=== PATIENT | male | born 1970 | race African-American/Black ===

== ENCOUNTER 2024-12-14 23:04 | Emergency (ER) | payer OTHER ==
--- OUTSIDE RECORDS SUMMARY | 2024-12-14 23:06 | XMS REPORT | Clinical Summary ---
Author Name Unknown Organization [facility] Address [address] [place] [address] [address] Team Prov[address] Care Road Maker Name Role Phone Romel Petit MD Primary Care Provider [phone] Garrison Landis MD Unavailable [phone] Isiah Flores MD Unavailable [phone] Sukh Torres MD Unavailable [phone] Uche Stern MD Unavailable [phone] Jesu Mcdonnell MD Unavailable Allergies No known active allergies Medications amLODIPine (NORVASC) 10 mg tabletIndicatio ns:hypertension Take 10 mg by mouth daily. Hx CHF 8 Active isosorbide mononitrate (IMDUR) 30 mg 24 hr tablet Take 30 mg by mouth daily. CHF Active lisinopril (PRINIVIL,ZESTR IL) 20 mg tablet Take 20 mg by mouth twice daily. Active pantoprazole (PROTONIX) 40 mg granules for suspensionIndic ations:gastroes ophageal reflux disease Take 40 mg by mouth daily. Active furosemide (LASIX) 40 mg tabletIndicatio ns:peripheral edema due to chronic heart failure Take 40 mg by mouth twice daily. Active digoxin (DIGOX) 125 mcg tabletIndicatio ns:chronic heart failure Take 125 mcg by mouth daily. Active carvedilol (COREG) 25 mg tabletIndicatio ns:chronic heart failure Take 25 mg by mouth twice daily. Active albuterol (VENTOLIN HFA,PROAIR HFA) 90 mcg/puff inhaler Inhale 2 puffs by mouth as needed. Active predniSONE (DELTASONE) 20 mg tabletIndicatio ns:Sarcoidosis TAKE 2 TABLETS EVERY DAY 60 tablet 6 Active Additional Information Patient taking differently: taking 1 tablet daily, tapping dose, Reason: Other, Informant: Self, Reported on 08/11/2016 albuterol (PROVENTIL,VENT MICHAEL) 2.5 mg /3 mL (0.083%) nebulizer solutionIndicat ions:Wheezing Take 1 vial by nebulization every 6 (six) hours as needed for wheezing or shortness of breath. 170 mL 11 6 Active Active Problems Problem Noted Date Diagnosed Date Other nonspecific abnormal finding of lung field Immunizations Name Administration Dates Next Due Influenza, split virus, trivalent, preservative free 05/11/2016 Pneumococcal Conjugate 13-Valent 05/11/2016 Medical History Medical History Date Comments Hypertension 09/30/07 high blood press ure Other heart disorder in dise ases classified elsewhere 09/30/07 congestive heart failure Chronic bronchitis 03/25/16 acute bronchi tis Pneumonia 03/25/16 CT shows left catie ng masses Fracture 05/07/85 broken leg Congestive heart failure 2007 viral m yocarditis Family History Medical History Relation Name Comments -Gastrointestinal (Esophagus , Liver, Bile Duct, Stomach, Pancreas, Colon, Rectum, Anus Maternal Aunt jorge whitlock colon canc er COPD Mother teresita greene Hypertension Mother teresita greene high blood pre ssure Lung cancer Mother teresita hel Stroke Mother teresita hel stroke Relation Name Status Comments Brother car accident Father Maternal Aunt jorge whitlock Mother teresita greene Social History Tobacco Use Types Packs/Day Years Used Date Smoking Tobacco: Former Cigarettes 0.3 5.3 0 02/28/2009 - 06/28/2014 Smokeless Tobacco: Never Comments:was a light smoker , but quit over a year ago.. 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 Not on file Not on file Not on file Obstetrics History Plan of Treatment Health Maintenance Due Date Last Done Comments Pneumococcal Vaccine: 50+ Years (2 of 2 - PPSV23) 08/2305/11/2016 COVID-19 Vaccine (2023- season) 2024 Influenza Vaccine (#1) 2024 05/11/2016 Insurance MEDICARE PART A AND B MEDICARE PART A AND B MEDICARE PART A AND B Care Teams Road Maker Relationship Specialty Start Date End Date Romel Petit MD [email or web address] PCP - General Internal Medicine 03/27/16 Garrison Landis MD PCP - External Primary Care Provider Family Practice 03/26/16 Isiah Flores MD [address] [place] [id number] [email or web address] PCP - External Follow Up A Cardiology 03/26/16 Sukh Torres MD [address] [place] [id number] [email or web address] PCP - External Follow Up B Pulmonary Medicine 03/26/16 Uche Stern MD [address] [place] [email or web address] Consulting Physician Pulmonary Medicine 04/20/16 Jesu Mcdonnell MD [address] [place] [address] [email or web address] Consulting Physician Rheumatology 05/11/16
--- NOTE | 2024-12-14 23:26 | EDPHYS ---
Physician Documentation [facility] Name: Keny Greene Age: 54 yrs Sex: Male : 1970 Arrival Date: 12/14/2024 Time: 23:04 Bed IW1 Private MD: ED Physician Ramin Maldonado HPI: 12/14 23:35 This 54 yrs old Black Male presents to ER via Ambulatory with complaints of Cat Bite. sb4 23:35 The patient was bitten on the dorsum of left hand, by a cat, while approaching the sb4 animal, outdoors. Onset: The symptoms/episode began/occurred just prior to arrival. Animal information: Patient/Caregiver unable to provide information related to the animal. feral cat. Secondary to the bite the patient reports multiple puncture wounds, that are superficial. Historical: - Allergies: 23:14 No Known Allergies; ha1 - PMHx: 23:14 Chronic obstructive lung disease; SARCOIDOSIS; ha1 - Immunization history:: Adult Immunizations up to date. - Infectious Disease History:: Denies. - Social history:: Smoking status: Patient denies any tobacco usage or history of. ROS: 23:35 Constitutional: Negative for fever, chills, and weight loss, sb4 23:35 Skin: Positive for abrasion(s), puncture, of the left hand, abrasion right wrist, puncture wounds left hand, 23:35 All other systems are negative, Exam: 23:35 Constitutional: This is a well developed, well nourished patient who is awake, alert, sb4 and in no acute distress. Head/Face: Normocephalic, atraumatic. Eyes: Extra-ocular motions intact. Periorbital areas with no swelling, redness, or edema. ENT: Mucous membranes moist. Respiratory: No increased work of breathing, no retractions or nasal flaring. 23:35 Skin: injury, abrasion(s), small abrasion noted, of the right wrist, puncture(s), that are superficial, of the dorsum of left hand, Vital Signs: 23:14 BP 103 / 61; Pulse 76; Resp 17 S; Temp 98.4(O); Pulse Ox 99% on R/A; Weight 97.52 kg; ha1 Height 5 ft. 10 in. ; 23:14 Body Mass Index 30.85 (97.52 kg, 177.8 cm) ha1 MDM: 23:08 Medical Screening Exam initiated sb4 23:35 Rabies Status: Rabies immunization is not indicated. Data reviewed: vital signs, nurses sb4 notes, and as a result, I will discharge patient. Counseling: I had a detailed discussion with the patient and/or guardian regarding the historical points, exam findings, and any diagnostic results supporting the discharge/admit diagnosis, the need for outpatient follow up, for definitive care, to return to the emergency department if symptoms worsen or persist or if there are any questions or concerns that arise at home. 12/14 23:25 Order name: Wound dressing; Complete Time: 23:39 sb4 Administered Medications: 23:29 Drug: Amoxicillin-Clavulanate PO 875 mg PO once Route: PO; ha1 23:42 Follow up: Response: No adverse reaction ha1 23:29 Drug: Ibuprofen PO 800 mg PO once Route: PO; ha1 23:42 Follow up: Response: No adverse reaction; Pain is decreased ha1 Disposition: 12/15 02:04 Co-signature as Attending Physician, Ramin Maldonado MD I reviewed the patient's care rn provided by the Advanced Practice Provider and agree with the diagnosis and treatment plan. Disposition Summary: 12/14/24 23:26 Discharge Ordered Notes: Location: Home sb4 Problem: new sb4 Symptoms: are unchanged sb4 Condition: Stable sb4 Diagnosis - Bitten by cat sb4 Followup: sb4 - With: Emergency Department - When: As needed - Reason: Fever > 102 F, Worsening of condition Discharge Instructions: - Discharge Summary Sheet sb4 - Animal Bite, Adult, [id number] sb4 - Puncture Wound, [id number] sb4 - Wound Care, Adult sb4 Forms: - Antibiotic Education sb4 - Patient Portal Instructions sb4 - Leadership Thank You Letter sb4 Prescriptions: - Augmentin 875-125 mg Oral Tablet - take 1 tablet ORAL route every 12 hours for 10 days; 20 tablet; Refills: 0, sb4 Product Selection Permitted Signatures: Ramin Maldonado MD MD rn Ayala, Heidy, RN RN ha1 Skye Enciso PA-C PA-C sb4
--- NOTE | 2024-12-14 23:26 | ER ---
Nurse's Notes [facility] Name: Keny Greene Age: 54 yrs Sex: Male : 1970 Arrival Date: 12/14/2024 Time: 23:04 Bed IW1 Private MD: Diagnosis: Bitten by cat Presentation: 12/14 23:14 Chief complaint: Patient states: CAT BITE ON THE LEFT HAND AND SCRATCHED ON THE RIGHT ha1 WRIST. IT HAPPENED ONE HOUR AGO. Coronavirus screen: Client denies travel out of the [place] in the last 14 days. Ebola Screen: No symptoms or risks identified at this time. Initial Sepsis Screen: Does the patient meet any 2 criteria? No. Patient's initial sepsis screen is negative. Does the patient have a suspected source of infection? No. Patient's initial sepsis screen is negative. Risk Assessment: Do you want to hurt yourself or someone else? Patient reports no desire to harm self or others. Onset of symptoms was December 14, 2024. 23:14 Method Of Arrival: Ambulatory 1 23:14 Acuity: DESIREE 4 ha1 Triage Assessment: 23:14 Bite description: bite sustained to left hand by a cat, animal information: ha1 vaccination(s) is unknown. General: Appears comfortable, Behavior is calm, cooperative. Pain: Complains of pain in left hand. Neuro: Level of Consciousness is awake, alert, obeys commands, Oriented to person, place, time, situation. Cardiovascular: Capillary refill < 3 seconds Patient's skin is warm and dry. Respiratory: Airway is patent Respiratory effort is even, unlabored, Respiratory pattern is regular, symmetrical. Historical: - Allergies: 23:14 No Known Allergies; ha1 - PMHx: 23:14 Chronic obstructive lung disease; SARCOIDOSIS; ha1 - Immunization history:: Adult Immunizations up to date. - Infectious Disease History:: Denies. - Social history:: Smoking status: Patient denies any tobacco usage or history of. Screenin:39 [facility] ED Fall Risk Assessment (Adult) History of falling in the last 3 months, ha1 including since admission No falls in past 3 months (0 pts) Confusion or Disorientation No (0 pts) Intoxicated or Sedated No (0 pts) Impaired Gait No (0 pts) Mobility Assist Device Used No (0 pt) Altered Elimination No (0 pt) Score/Fall Risk Level 0 - 2 = Low Risk Oriented to surroundings, Maintained a safe environment, Educated pt \T\ family on fall prevention, incl call for assistance when getting out of bed, Hourly rounding (assess needs \T\ fall precautionary measures) done. Abuse screen: Denies threats or abuse. Denies injuries from another. Nutritional screening: No deficits noted. Tuberculosis screening: No symptoms or risk factors identified. Assessment: 23:14 General: Appears comfortable, Behavior is calm, cooperative. Pain: Complains of pain in ha1 left hand. Respiratory: Airway is patent Respiratory effort is even, unlabored, Respiratory pattern is regular, symmetrical. Derm: Skin is healthy with good turgor, Skin is normal. 23:59 Reassessment: NOTIFIED [facility] DEPARTMENT OF EVENT CASE #[id number]. ha1 Vital Signs: 23:14 BP 103 / 61; Pulse 76; Resp 17 S; Temp 98.4(O); Pulse Ox 99% on R/A; Weight 97.52 kg; ha1 Height 5 ft. 10 in. ; 23:14 Body Mass Index 30.85 (97.52 kg, 177.8 cm) ha1 ED Course: 23:06 Patient arrived in ED. [id number] 23:07 Skye Enciso PA-C is PHCP. sb4 23:07 Ramin Maldonado MD is Attending Physician. sb4 23:14 Arm band placed on left wrist. ha1 23:14 Patient has correct armband on for positive identification. Side rails up X 1. ha1 23:14 Provided Education on: wound care . ha1 23:18 Triage completed. ha1 23:40 No provider procedures requiring assistance completed. Patient did not have IV access ha1 during this emergency room visit. Administered Medications: 23:29 Drug: Amoxicillin-Clavulanate PO 875 mg PO once Route: PO; ha1 23:42 Follow up: Response: No adverse reaction ha1 23:29 Drug: Ibuprofen PO 800 mg PO once Route: PO; ha1 23:42 Follow up: Response: No adverse reaction; Pain is decreased ha1 Medication: 23:40 VIS not applicable for this client. ha1 Outcome: 23:26 Discharge ordered by . sb4 23:40 Discharged to home ambulatory, with family, ha1 23:40 Condition: stable 23:40 Discharge instructions given to patient, Instructed on discharge instructions, follow up and referral plans. medication usage, Demonstrated understanding of instructions, follow-up care, medications, Prescriptions given X 1, 23:42 Patient left the ED. ha1 Signatures: Mary Erickson Heidy RN RN ha1 Skye Enciso PA-C PA-C sb4 Corrections: (The following items were deleted from the chart) 23:42 23:42 Response: No adverse reaction ha1 ha1
[2024-12-14] MEDS ORDERED: AMOX/K CLAV 875 MG TAB ONE (23:29)
[2024-12-14] MEDS ORDERED: IBUPROFEN 400 MG TAB ONE (23:30)
[2024-12-15 00:31] VITALS: BP 103/61; TEMP 98.4; O2SAT 99
== END 2024-12-14 23:42 | disposition home or self-care (01) ==
LOC: ER 23:04
DX: S61.432A Puncture wound without foreign body of left hand, initial encounter (principal); S60.811A Abrasion of right wrist, initial encounter; W55.01XA Bitten by cat, initial encounter
CPT/HCPCS: 99283